=== PATIENT | female | born 1975 | race Caucasian/White ===

== ENCOUNTER 2016-11-01 17:39 | Emergency (ER) | payer OTHER | END 2016-11-01 20:15 | disposition home or self-care (01) | LOC: ER 17:39 | DX: G43.909 Migraine, unspecified, not intractable, without status migrainosus (principal); Z79.899 Other long term (current) drug therapy; Z91.041 Radiographic dye allergy status; Z88.8 Allergy status to other drugs, medicaments and biological substances; Z85.41 Personal history of malignant neoplasm of cervix uteri; Z85.038 Personal history of other malignant neoplasm of large intestine | CPT/HCPCS: 96361; 96374; 96375; J1100; J1885; J2765 ==